=== PATIENT | female | born 1960 | race Caucasian/White ===

== ENCOUNTER → 2018-10-17 08:52 | Outpatient (CLI) | payer OTHER | END | disposition home or self-care (01) | LOC: D.CT 08:52 | DX: R93.89 Abnormal findings on diagnostic imaging of other specified body structures (principal) ==

== ENCOUNTER 2019-01-19 15:58 | Inpatient (IN) | payer OTHER ==
[~2019-01-19] VITALS: Ht 170.2 cm; Wt 118.7 kg
[2019-01-19] MEDS ORDERED: IPRAT-ALBUT 0.5-3 ML UPD (16:29)
[2019-01-19] MEDS ORDERED: ZITHROMAX250 MG PO (16:29)
[2019-01-19] MEDS ORDERED: CYMBALTA60 MG PO (16:29)
[2019-01-19] MEDS ORDERED: OMEPRAZOLE20 M1 PO (16:30)
[2019-01-19] MEDS ORDERED: ATIVAN0.5 MG PO (16:30)
[2019-01-19] MEDS ORDERED: LISINOPRIL10 MG PO (16:30)
[2019-01-19] MEDS ORDERED: AMBIEN10 MG PO (16:32)
[2019-01-19] MEDS ORDERED: ALBUTEROL SULF8.5 GM INH (16:32)
[2019-01-19 17:10] LABS: BASOPHILS 0.5 % (0-2); EOSINOPHILS 1.1 % (0-7); HEMATOCRIT 49.8 % (36.0-48.0); IMMATURE GRANULOCYTES 0.7 % (0-5); LYMPHOCYTES 43.5 % (15-50); MCH 31.8 pg (26.0-34.0); MCHC 34.1 g/dL (31.0-37.0); MCV 93.3 fL (80.0-100.0); MEAN PLATELET VOLUME 11.7 fL (7.4-10.4); MONOCYTES 8.3 % (2-11); NEUTROPHILS 45.9 % (40-80); PLATELET COUNT 197 10x3/uL (130-400); RBC 5.34 10x6/uL (4.00-5.40); RDW 15.2 % (11.5-14.5); WBC 8.4 10x3/uL (4.8-10.8)
[2019-01-19 17:32] LABS: APPEARANCE CLEAR (CLEAR); BILIRUBIN NEGATIVE (NEGATIVE); COLOR YELLOW (YELLOW); GLUCOSE NEGATIVE (NEGATIVE); KETONE NEGATIVE (NEGATIVE); NITRITE NEGATIVE (NEGATIVE); PROTEIN NEGATIVE (NEGATIVE); UROBILINOGEN NORMAL (NORMAL)
[2019-01-19 17:36] VITALS: BP 135/88
[2019-01-19 17:38] LABS: PRO BNP 43 pg/mL (0-125)
[2019-01-19 17:39] LABS: TROPONIN-I < 0.017 ng/mL (0.000-0.060)
[2019-01-19 18:13] LABS: PROTIME 12.7 SECONDS (11.6-15.0)
[2019-01-19 18:15] LABS: D-DIMER-QUANTITATIVE 0.27 ug/mLFEU (0.20-0.54)
[2019-01-19 19:30] VITALS: BP 115/73
[2019-01-19 23:39] VITALS: BP 129/76; BMI 24.6
[2019-01-20] VITALS: BP 129/76
[2019-01-20 04:00] VITALS: BP 137/93
[2019-01-20 08:33] VITALS: BP 118/83
[2019-01-20 13:26] VITALS: BP 130/88
[2019-01-20 14:42] LABS: BASOPHILS 0.3 % (0-2); EOSINOPHILS 1.4 % (0-7); HEMATOCRIT 44.9 % (36.0-48.0); HEMOGLOBIN 14.9 g/dL (12-16); IMMATURE GRANULOCYTES 0.6 % (0-5); LYMPHOCYTES 44.7 % (15-50); MCH 31.6 pg (26.0-34.0); MCHC 33.2 g/dL (31.0-37.0); MEAN PLATELET VOLUME 11.8 fL (7.4-10.4); MONOCYTES 9.7 % (2-11); NEUTROPHILS 43.3 % (40-80); PLATELET COUNT 197 10x3/uL (130-400); RBC 4.71 10x6/uL (4.00-5.40)
[2019-01-20 14:44] LABS: MCV 95.3 fL (80.0-100.0)
[2019-01-20 15:05] LABS: ALBUMIN 3.1 g/dL (3.4-5.0); ALKALINE PHOSPHATASE 87 U/L (46-116); ALT (SGPT) 46 U/L (10-68); BILIRUBIN - TOTAL 0.19 mg/dL (0.2-1.3); CALC OSMOLALITY 285 mosm/kg (275-300); CALCIUM 8.1 mg/dL (8.5-10.1); CARBON DIOXIDE 26.2 mmol/L (21.0-32.0); CHLORIDE - SERUM 105 mmol/L (98-107); CREATININE - SERUM 0.7 mg/dL (0.6-1.3); GLUCOSE 176 mg/dL (74-106); POTASSIUM - SERUM 4.1 mmol/L (3.5-5.1); PROTEIN - SERUM 5.8 g/dL (6.4-8.2); SODIUM 141 mmol/L (136-145); UREA NITROGEN 15 mg/dL (7-18); eGFR NON AFRICAN AMERICAN > 90 mL/min (90-120)
[2019-01-20] MEDS ORDERED: ABILIFY10 MG PO (15:19)
[2019-01-20] MEDS ORDERED: AMBIEN5 MG PO (15:29)
[2019-01-20 17:01] VITALS: BP 135/77
[2019-01-20 20:00] VITALS: BP 141/85
[2019-01-21] VITALS: BP 134/74
[2019-01-21 04:00] VITALS: BP 140/80
[2019-01-21 08:32] VITALS: BP 111/87
[2019-01-21 12:52] VITALS: BP 141/82
[2019-01-21 13:22] VITALS: BMI 41.1
[2019-01-21 15:43] VITALS: BP 137/76
[2019-01-21 20:00] VITALS: BP 134/64
[2019-01-22] VITALS: BP 130/86
[2019-01-22 04:00] VITALS: BP 135/84
[2019-01-22 09:06] VITALS: BP 142/95
--- NOTE | 2019-01-22 11:19 | EC ---
PATIENT:MANDY GUILLORY DATE OF SERVICE: 01/19/19 SEX: F MEDICAL RECORD: [id number] DATE OF : 64 LOCATION:D. D.212 AGE OF PATIENT: 58 ADMISSION DATE: 01/19/19 REFERRING PHYSICIAN: INTERPRETING PHYSICIAN: HELEN EDWARDS MD ECHOCARDIOGRAM REPORT ECHO CHARGES 4 ECHO COMPLETE Date: 01/21/19 CLINICAL DIAGNOSIS: DYSPNEA ECHOCARDIOGRAPHIC MEASUREMENTS (adult normal given) AC root (d.<3.7cm) 2.7 cm LV Septum d (<1.2 cm> 1.8 cm Valve Excursion 1.5 cm LV Septum (systole) 2.0 cm Left Atria (s.<4.0cm> 4.3 cm LVPW d(<1.2cm) 1.2 cm RV (d.<2.3cm) 2.3 cm LVPW (sytole) 1.5 cm LV diastole(<5.6CM) 5.1 cm MV E-F(>70mm/sec) cm LV systole 3.5 cm LVOT Diameter 1.9 cm MV exc.(>10mm) cm Est.ejection fraction (50-75%) % DOPPLER: LVIT cm/sec A 100 cm/sec E 53.0 cm/sec LA cm/sec RVSP 33.1 mmHg LVOT 138 cm/sec AOP1/2T m/s Asc. Ao 156 cm/sec RVOT 67.0 cm/sec RA cm/sec PA 119 cm/sec AV Gradient Peak 9.7 mmHg AV Mean 5.5 mmHg AV Area 2.4 cm MV Gradient Peak 3.6 mmHg MV Mean 1.6 mmHg MV Area cm COMMENTS: Historian Dramatic Arts: 1 AUTUMN [employer] Biophys[employer] Teacher: Matt De La Garza TAPE# PACS Pericardial Effusion N DATE OF SERVICE: 01/21/2019 ECHOCARDIOGRAM DATE OF SERVICE: 01/21/2019 FINDINGS: 1. Left ventricular chamber size is within normal limits. Left ventricular systolic function is normal. Overall ejection fraction is estimated at 60%. 2. Left atrium, right atrium, and right ventricle chamber sizes are mildly ECHOCARDIOGRAM REPORT [id number] MANDY GUILLORY dilated. Left atrium measures 4.3 cm. 3. Valvular structures have normal structure and motion. 4. Doppler interrogation reveals mild mitral regurgitation, mild tricuspid regurgitation, no other valvular insufficiency or stenosis. Pulmonary systolic pressure is estimated at 33 mmHg. 5. No evidence of pericardial effusion or left ventricular thrombus. TRANSINT:[id number] Voice Confirmation ID: [id number] DOCUMENT ID: [id number] HELEN EDWARDS MD at 1119 CC: [id number] DICTATION DATE: 01/21/19 1237 PATIENT OBSERVER: 01/21/19 1248 ADM IN [place] [id number] [place] [address]
[2019-01-22 16:59] VITALS: BP 127/74
[2019-01-22 20:00] VITALS: BP 141/83
[2019-01-23 04:00] VITALS: BP 138/78
[2019-01-23 06:30] LABS: BASOPHILS 0 % (0-2); EOSINOPHILS 0 % (0-7); HEMATOCRIT 45.3 % (36.0-48.0); IMMATURE GRANULOCYTES 0.5 % (0-5); LYMPHOCYTES 14.7 % (15-50); MCH 31.2 pg (26.0-34.0); MCHC 33.1 g/dL (31.0-37.0); MCV 94.2 fL (80.0-100.0); MEAN PLATELET VOLUME 12.1 fL (7.4-10.4); MONOCYTES 2.1 % (2-11); NEUTROPHILS 82.7 % (40-80); PLATELET COUNT 198 10x3/uL (130-400); RBC 4.81 10x6/uL (4.00-5.40); RDW 15.4 % (11.5-14.5); WBC 6.1 10x3/uL (4.8-10.8)
[2019-01-23 06:40] LABS: CALC OSMOLALITY 286 mosm/kg (275-300); CALCIUM 9.6 mg/dL (8.5-10.1); CARBON DIOXIDE 26.5 mmol/L (21.0-32.0); CHLORIDE - SERUM 104 mmol/L (98-107); CREATININE - SERUM 0.6 mg/dL (0.6-1.3); GLUCOSE 162 mg/dL (74-106); POTASSIUM - SERUM 4.1 mmol/L (3.5-5.1); SODIUM 142 mmol/L (136-145); UREA NITROGEN 13 mg/dL (7-18); eGFR NON AFRICAN AMERICAN > 90 mL/min (90-120)
[2019-01-23 08:57] VITALS: BP 124/81
[2019-01-23 09:17] VITALS: Ht 170.2 cm; Wt 118.7 kg
[2019-01-23 09:58] LABS: CHOL - HDL RATIO 2.9 ratio (2.3-4.1); LDL-HDL RATIO 1.8 ratio (1.5-3.5)
[2019-01-23 11:30] VITALS: BP 142/84
[2019-01-23 15:30] VITALS: BP 139/79
[2019-01-23 20:00] VITALS: BP 130/66
[2019-01-24] VITALS: BP 115/66
[2019-01-24 04:00] VITALS: BP 114/83
[2019-01-24 06:17] LABS: CALC OSMOLALITY 287 mosm/kg (275-300); CALCIUM 8.9 mg/dL (8.5-10.1); CHLORIDE - SERUM 106 mmol/L (98-107); CREATININE - SERUM 0.6 mg/dL (0.6-1.3); GLUCOSE 176 mg/dL (74-106); SODIUM 141 mmol/L (136-145); eGFR NON AFRICAN AMERICAN > 90 mL/min (90-120)
[2019-01-24 06:18] LABS: UREA NITROGEN 22 mg/dL (7-18)
[2019-01-24 06:23] LABS: BASOPHILS 0.1 % (0-2); EOSINOPHILS 0 % (0-7); HEMATOCRIT 42.2 % (36.0-48.0); HEMOGLOBIN 14.1 g/dL (12-16); IMMATURE GRANULOCYTES 0.4 % (0-5); LYMPHOCYTES 12.3 % (15-50); MCH 31.3 pg (26.0-34.0); MCHC 33.4 g/dL (31.0-37.0); MCV 93.8 fL (80.0-100.0); MEAN PLATELET VOLUME 12.8 fL (7.4-10.4); MONOCYTES 4.4 % (2-11); NEUTROPHILS 82.8 % (40-80); PLATELET COUNT 186 10x3/uL (130-400); RDW 15.6 % (11.5-14.5)
[2019-01-24 06:41] LABS: WBC 10.3 10x3/uL (4.8-10.8)
[2019-01-24 09:18] LABS: IMMUNOGLOBULIN A 99 mg/dL (87-352)
[2019-01-24 09:21] VITALS: BP 126/76
[2019-01-24] MEDS ORDERED: PREDNISONE20 MG PO (11:19)
[2019-01-24 11:59] VITALS: BP 128/76
[2019-01-24] MEDS ORDERED: OMNICEF300 MG PO (12:13)
[2019-01-24] MEDS ORDERED: SINGULAIR10 MG PO (12:14)
[2019-01-24] MEDS ORDERED: SYMBICORT 16010.2 GM INH (12:15)
[2019-01-24] MEDS ORDERED: FLUTICASONE PRO16 GM NASAL (12:16)
[2019-01-24] MEDS ORDERED: CARDIZEM CD180 MG PO (12:27)
[2019-01-24] MEDS ORDERED: LIPITOR10 MG PO (12:28)
--- NOTE | 2019-01-24 16:58 | MORECARE ---
CASE MANAGEMENT DISCHARGE SUMMARY PATIENT: MANDY GUILLORY UNIT: [id number] ADM DATE: 01/19/19 AGE: 58 : 64 SEX: F ROOM/BED: D.1492 AUTHOR: LUIS ANGEL,DOC PHYSICIAN: REFERRING PHYSICIAN: JAMEL GUERRERO MD DATE OF SERVICE: 01/24/19 Discharge Plan Patient Name: MANDY GUILLORY Facility: [facility]:[place] : 1960 Planned Disposition: Home Anticipated Discharge Date: 01/24/19 Discharge Date: 01/24/2019 Expected LOS: 5 Initial Reviewer: [email or web address] Initial Review Date: 01/24/2019 Generated: 01/24/19 5:57 pm Comments DCP- Discharge Planning Updated by [email or web address]: Hima Rodriguez on 01/24/19 3:[address] Patient Name: MANDY GUILLORY Admission Status: ER Accout number: [id number] Admission Date: 01-19-2019 : 1960 Admission Diagnosis:SHORTNESS OF BREATH Attending: JAMEL GRAY Current LOS: 5 Anticipated DC Date: 01-24-2019 Planned Disposition: Home Primary Insurance: [employer] Discharge Planning Comments: CM MET WITH PT IN ROOM TO DISCUSS DISCHARGE PLANNING AND NEEDS. PT REPORTS LIVING AT HOME INDEPENDENTLY AND ALONE. PT HAS NEBULIZER FROM [employer] [facility]. PT HAS NO SERVICES ASSISTING IN THE HOME. CM DISCUSSED AVAILABILITY OF HOME HEALTH, REHAB SERVICES AND MEDICAL EQUIPMENT. PT DENIES DISCHARGE NEEDS, REPORTS HER SISTER WILL PICK HER UP FOR DISCHARGE HOME. [employer] F[employer]ATOR NOTIFIED. Programming Development Project Manager: Hima Rodriguez DCPIA - Discharge Planning Initial Assessment Updated by [email or web address]: Hima Rodriguez on 01/24/19 4:51 pm * Is the patient Alert and Oriented? Yes * How many steps to enter\exit or inside your home? * PCP DR. GRAFF * Pharmacy [facility] ON [facility] * Preadmission Environment Home Alone * ADLs Independent * Equipment Nebulizer * Other Equipment [employer] [facility] - PROVIDER * List name and contact numbers for known caregivers / representatives who currently or will assist patient after discharge: TRISTA LEVY, SISTER, * Verbal permission to speak to the caregivers and representatives has been obtained from the patient. N/A * Community resources currently utilized None * Please name any agencies selected above. NONE * Additional services required to return to the preadmission environment? No * Can the patient safely return to the preadmission environment? Yes * Has this patient been hospitalized within the prior 30 days at any hospital? No Patient Name: MANDY GUILLORY Page [id number] at 1658 All edits/amendments must be made on the electronic document DICTATION DATE: 01/24/191656 BUSINESS ASST: TREE 01/24/191656 RPT#: [id number] DC DATE:01/24/19 STATUS: DIS IN [facility] [address] [place] [address] END OF REPORT
== END 2019-01-24 13:31 | disposition home or self-care (01) | DRG 191 ==
LOC: D.ER 15:58 → D.M2 20:54
PROVIDERS: Family Medicine; Internal Medicine Interventional Cardiology; Internal Medicine Nephrology; Internal Medicine Pulmonary Disease; ADMIT Family Medicine Adult Medicine
DX: J44.1 Chronic obstructive pulmonary disease with (acute) exacerbation (principal); J98.11 Atelectasis; D80.3 Selective deficiency of immunoglobulin G [IgG] subclasses; F41.9 Anxiety disorder, unspecified; F32.9 Major depressive disorder, single episode, unspecified; R73.9 Hyperglycemia, unspecified; I08.1 Rheumatic disorders of both mitral and tricuspid valves; K21.9 Gastro-esophageal reflux disease without esophagitis; G47.33 Obstructive sleep apnea (adult) (pediatric); D75.1 Secondary polycythemia

== ENCOUNTER → 2019-06-03 06:36 | Outpatient (CLI) | payer OTHER ==
[2019-01-23 09:17] VITALS: BMI 41.1
[~2019-06-03 06:36] MED LIST: ABILIFY10 MG PO; ALBUTEROL SULF8.5 GM INH; AMBIEN10 MG PO; AMBIEN5 MG PO; ATIVAN0.5 MG PO; CARDIZEM CD180 MG PO; CYMBALTA60 MG PO; FLUTICASONE PRO16 GM NASAL; IPRAT-ALBUT 0.5-3 ML UPD; LIPITOR10 MG PO; LISINOPRIL10 MG PO; OMEPRAZOLE20 M1 PO; OMNICEF300 MG PO; PREDNISONE20 MG PO; SINGULAIR10 MG PO; SYMBICORT 16010.2 GM INH; ZITHROMAX250 MG PO
[2019-06-03 08:02] LABS: ALBUMIN 3.4 g/dL (3.4-5.0); BILIRUBIN - DIRECT 0.08 mg/dL (0.00-0.30); BILIRUBIN - INDIRECT 0.21 mg/dL (0.00-1.00); BILIRUBIN - TOTAL 0.29 mg/dL (0.2-1.3)
== END | disposition home or self-care (01) ==
LOC: D.US 05-31 11:00 → D.NM 05-31 11:30 → D.US 06:36
PROVIDERS: ATTEND Internal Medicine Gastroenterology
DX: R10.12 Left upper quadrant pain (principal); R11.2 Nausea with vomiting, unspecified; K76.0 Fatty (change of) liver, not elsewhere classified

== ENCOUNTER → 2019-08-09 10:53 | Outpatient (CLI) | payer OTHER ==
[2019-01-23 09:17] VITALS: BMI 41.1
== END | disposition home or self-care (01) ==
LOC: D.RT 10:53
PROVIDERS: ATTEND Internal Medicine Pulmonary Disease
DX: J44.9 Chronic obstructive pulmonary disease, unspecified (principal)

== ENCOUNTER → 2020-06-29 09:36 | Outpatient (CLI) | payer MEDICAID ==
[2019-01-23 09:17] VITALS: BMI 41.1
== END | disposition home or self-care (01) ==
LOC: D.CT 09:36
PROVIDERS: ATTEND Internal Medicine Pulmonary Disease
DX: J44.9 Chronic obstructive pulmonary disease, unspecified (principal)

== ENCOUNTER → 2020-06-30 08:09 | Outpatient (CLI) | payer MEDICAID ==
[2019-01-23 09:17] VITALS: BMI 41.1
[2020-06-30 09:19] LABS: ALBUMIN 3.3 g/dL (3.4-5.0); BILIRUBIN - DIRECT 0.15 mg/dL (0.00-0.30); BILIRUBIN - INDIRECT 0.36 mg/dL (0.00-1.00); BILIRUBIN - TOTAL 0.51 mg/dL (0.2-1.3); PROTEIN - SERUM 6.1 g/dL (6.4-8.2)
== END | disposition home or self-care (01) ==
LOC: D.US 08:09
PROVIDERS: ATTEND Internal Medicine Gastroenterology
DX: K76.0 Fatty (change of) liver, not elsewhere classified (principal)